=== PATIENT | female | born 1935 | race Caucasian/White ===

== ENCOUNTER → 2023-10-17 10:14 | Outpatient (REF) | payer MEDICARE, OTHER, SELFPAY ==
[2023-10-17 11:26] LABS: % Basophils 0.6 % (0-2); % Eosinophils 4.1 % (0-6); % Immature Granulocytes 0.4 % (0-0.5); % Lymphocytes 20.4 % (20.5-51.1); % Monocytes 6.5 % (1.7-9.3); Absolute Basophils 0.1 10^3/uL (0-0.2); Absolute Eosinophils 0.4 10^3/uL (0-0.7); Absolute Lymphocytes 1.7 10^3/uL (1.2-3.4); Absolute Monocytes 0.6 10^3/uL (0.1-0.6); Absolute Neutrophils 5.8 10^3/uL (1.4-6.5); Hematocrit 32.1 % (37.0-47.0); Hemoglobin 10.7 g/dL (12.0-16.0); Mean Corp Hgb Conc. 33.3 g/dL (33.0-37.0); Mean Corpuscular Hgb 30.9 pg (27.0-31.0); Mean Corpuscular Volume 92.8 fL (81.0-99.0); Mean Platelet Volume 12.2 fL (7.4-10.4); Nucleated Red Blood Cells % 0 %; Platelet Count 133 10^3/uL (130-400); Red Blood Cell Count 3.46 10^6/uL (4.20-5.40); Red Cell Dist. Width 13.1 % (11.5-14.5); White Blood Cell Count 8.5 10^3/uL (4.8-10.8)
[2023-10-17 13:00] LABS: ALT (SGPT) 17 U/L (0-35); AST (SGOT) 23 U/L (14-36); Albumin 3.7 g/dl (3.5-5.0); Alkaline Phosphatase 98 U/L (38-126); Blood Urea Nitrogen 41 mg/dl (7-17); Calcium 8.2 mg/dl (8.4-10.2); Carbon Dioxide 23 mmol/L (22-30); Chloride 112 mmol/L (98-107); Glucose 152 mg/dl (70-99); HDL Cholesterol 54 mg/dl; LDL Cholesterol, Calculated 44 mg/dl; Potassium 4.1 mmol/L (3.5-5.1); Sodium 142 mmol/L (135-145); Total Bilirubin 0.7 mg/dl (0.2-1.3); Total Cholesterol 122 mg/dl (50-199); Total Protein 6.9 g/dl (6.3-8.2); Triglyceride 121 mg/dl (10-149); Very Low Density Lipoprotein 24 mg/dl (0-30); eGFR 22.52
[2023-10-17 13:01] LABS: Glycohemoglobin (HgbA1c) 8.6 % (4.0-5.6)
[2023-10-17 13:49] LABS: TSH Reflex To Free T4 1.08 uIU/ml (0.47-4.68)
[2023-10-17 14:08] LABS: Vitamin B12 616 pg/ml (239-931)
== END ==
LOC: RAD 10:14
PROVIDERS: ATTENDING PHYSICIAN Family Medicine
DX: R05.1 Acute cough (principal); E11.9 Type 2 diabetes mellitus without complications; N18.4 Chronic kidney disease, stage 4 (severe); E78.5 Hyperlipidemia, unspecified; I10 Essential (primary) hypertension; E53.8 Deficiency of other specified B group vitamins
CPT/HCPCS: 36415; 71046; 80053; 80061; 82607; 83036; 84443; 85025